=== PATIENT | female | born 2000 | race Caucasian/White ===

== ENCOUNTER 2025-03-28 13:51 | Emergency (ER) | payer SELFPAY ==
[2025-03-28] MEDS ORDERED: Ibuprofen 800 MG TAB ONE (14:16)
== END 2025-03-28 14:55 | disposition home or self-care (01) ==
LOC: BURERS 13:51
DX: B34.9 Viral infection, unspecified (principal); F17.290 Nicotine dependence, other tobacco product, uncomplicated
CPT/HCPCS: 87081; 87428; 87430; 99283